=== PATIENT | female | born 1995 | race Caucasian/White ===

== ENCOUNTER 2023-06-03 10:02 | Emergency (ER) | payer OTHER ==
[2023-06-03 10:30] VITALS: BP 115/80; PULSE 91; RESP 20; TEMP 98.2; BMI 18.6
[2023-06-03] MEDS ORDERED: CALCIUM GLUCONATE 10% - 1,000 MG/10 ML VIAL ONE (11:40)
[2023-06-03] MEDS ORDERED: KETOROLAC TROMETHAMINE 30 MG/1 ML VIAL ONE (11:48)
[2023-06-03] MEDS ORDERED: LIDOCAINE 5% TOPICAL PATCH ONE (11:48)
[2023-06-03] MEDS ORDERED: diazePAM 5 MG TABLET ONE (11:49)
[2023-06-03] MEDS: KETOROLAC TROMETHAMINE 30 MG/1 ML VIAL IVPUSH ONE (11:57)
[2023-06-03] MEDS: diazePAM 5 MG TABLET PO ONE (11:58)
[2023-06-03] MEDS: LIDOCAINE 5% TOPICAL PATCH TP ONE (11:58)
[2023-06-03] MEDS: SODIUM CHLORIDE 0.9% 1000 ML INFUS.BAG IV ONE (11:58)
[2023-06-03 12:56] LABS: HEMATOCRIT 44.4 % (32.4-45.2); HEMOGLOBIN 14.8 G/dL (10.7-15.3); MCH 28.5 pg (25.7-33.7); MCHC 33.4 g/dl (32.0-36.0); MEAN CELL VOLUME 85.3 fl (80-96); MEAN PLT VOLUME 9.4 fl (7.5-11.1); WHITE BLOOD COUNT 13.5 10^3/uL (4.0-10.8)
[2023-06-03 14:46] LABS: PLATELET ESTIMATE ADEQUATE
[2023-06-03 15:00] LABS: ALBUMIN 4.7 g/dl (3.4-5.0); BILIRUBIN,TOTAL 0.4 mg/dl (0.2-1); CALCIUM 10.1 mg/dl (8.5-10.1); CREATININE 0.7 mg/dl (0.6-1.3); TOT PROT 7.5 g/dl (6.4-8.2)
[2023-06-03] MEDS ORDERED: LIDOCAINE PATCH REMOVAL MC ONE (22:00)
== END 2023-06-03 13:54 | disposition home or self-care (01) ==
LOC: FER 10:02
PROC: 3E0333Z Introduction of Anti-inflammatory into Peripheral Vein, Percutaneous Approach (ICD-10-PCS; principal; 2023-06-03)
DX: M54.2 Cervicalgia (principal); R20.2 Paresthesia of skin; R42 Dizziness and giddiness; M79.602 Pain in left arm; M54.12 Radiculopathy, cervical region; S16.1XXA Strain of muscle, fascia and tendon at neck level, initial encounter; X58.XXXA Exposure to other specified factors, initial encounter; Z20.822 Contact with and (suspected) exposure to COVID-19
CPT/HCPCS: 0241U-QW; 36415; 80053; 81025; 85027; 99284-25